=== PATIENT | male | born 1950 | race Caucasian/White ===

== ENCOUNTER 2018-12-04 11:53 | Outpatient (CLI) | payer MEDICARE ==
--- NOTE | 2018-12-04 18:47 | RAD ---
CHEST TWO VIEWS 12/04/18 Comparison is made with the 01/25/17 study. The heart size is stable and is normal in size. No acute infiltrates are seen. There is little lingul ar scarring. There are no effusions. Mild compressions of multiple thoracic vertebra are seen, each with vertebroplasty areas within them. The lungs are mildly hyperexpanded. The right hilum is a littl e more prominent than the left but I believe it is mostly due to overlapping structures and vessels. It does not seem substantially different from the 01/25/17 study. IMPRESSION: No acute thoracic findings. POS: HOME
== END 2018-12-04 11:54 | disposition home or self-care (01) ==
LOC: BURRAD 11:53
PROVIDERS: ATTEND Nurse Practitioner Family
DX: R05 Cough (principal)
CPT/HCPCS: 71046

== ENCOUNTER 2020-12-21 11:51 | Outpatient (CLI) | payer MEDICARE | END 2020-12-21 11:52 | disposition home or self-care (01) | LOC: BURRAD 11:51 | PROVIDERS: ATTEND Family Medicine | DX: R07.81 Pleurodynia (principal) ==

== ENCOUNTER 2023-12-18 15:23 | Outpatient (CLI) | payer MEDICARE | END 2023-12-18 15:24 | disposition home or self-care (01) | LOC: BURRAD 15:23 | PROVIDERS: ATTEND Family Medicine | DX: M54.2 Cervicalgia (principal); M47.812 Spondylosis without myelopathy or radiculopathy, cervical region | CPT/HCPCS: 72040 ==

== ENCOUNTER 2024-01-01 14:53 | Outpatient (CLI) | payer MEDICARE | END 2024-01-01 14:54 | disposition home or self-care (01) | LOC: BURRAD 14:53 | PROVIDERS: ATTEND Family Medicine | DX: M25.512 Pain in left shoulder (principal) ==

== ENCOUNTER 2024-02-07 12:28 | Outpatient (CLI) | payer MEDICARE | END 2024-02-07 12:29 | disposition home or self-care (01) | LOC: BURRAD 12:28 | PROVIDERS: ATTEND Nurse Practitioner Family | DX: S22.089A Unspecified fracture of T11-T12 vertebra, initial encounter for closed fracture (principal); W19.XXXA Unspecified fall, initial encounter; Z98.890 Other specified postprocedural states | CPT/HCPCS: 72072; 72100 ==